=== PATIENT | female | born 1945 | race Caucasian/White ===

== ENCOUNTER → 2023-07-20 09:52 | Outpatient (REF) | payer MEDICARE, OTHER, SELFPAY | LOC: HWRAD 09:52 | PROVIDERS: ATTENDING PHYSICIAN Specialist | DX: R91.8 Other nonspecific abnormal finding of lung field (principal) | CPT/HCPCS: 71250 ==

== ENCOUNTER 2023-12-15 10:41 | Emergency (ER) | payer MEDICARE, OTHER, SELFPAY ==
[2023-12-15 11:07] VITALS: BP 201/93
[2023-12-15 11:23] VITALS: BP 192/95
[2023-12-15 11:48] VITALS: BMI 28.8
--- NOTE | 2023-12-15 11:55 | ED.GENMED ---
History of Present Illness
General
Chief Complaint: Visual Problem
Source: patient
Exam Limitations: none
Time Seen by Provider: 12/15/23 11:46
History of Present Illness
History of Present Illness:
See MDM
Past History
Past History
ED Past Medical History: Arrthythmia (a fib), HTN and Other (Colitis, diverticulitis)
ED Past Surgical History: Gynecological, Orthopedic (donna L femur), Urological and Other (Meningioma removal)
Social History
Tobacco: Non-smoker
Alcohol: None
Drug: None
Personal:
Living: with family
Phy Exam
Physical Exam
Physical Exam:
See MDM
Course
Orders/Labs/Results
Orders:
Orders
12/15/23 11:53
Electrocardiogram (*1) Urgent
Reason for Study: TIA/Stroke
CT Head W/o Iv Contrast Urgent
Comment:
Reason For Exam: double vision, JOVEL
EKG- Treatment ONCE
12/15/23 12:05
Complete Blood Count/With Diff Urgent
Comprehensive Metabolic Panel Urgent
PTT Urgent
Prothrombin Time Urgent
Troponin I Urgent
12/15/23 12:53
NEUROLOGY CONSULT Urgent
Consulting Provider: Ambrosio Murry
Was physician already notified: Yes
12/15/23 12:58
Labetalol HCl [Trandate] 10 mg IV NOW STA
12/15/23 14:02
Acetaminophen [Tylenol] 1,000 mg PO NOW STA
Abnormal Lab Results
12/15/23
12:05
WBC 4.5 L 10^3/uL
(4.8-10.8)
Immature Gran % 0.7 H %
(0-0.5)
PT 15.8 H Sec
(11.4-14.6)
Chloride 109 H mmol/L
(98-107)
BUN 18 H mg/dl
(7-17)
Glucose 106 H mg/dl
(70-99)
Calcium 10.4 H mg/dl
(8.4-10.2)
12/15/23 12:05
12/15/23 12:05
Vital Signs
Initial and Last Documented VS:
Initial Vital Signs
Temp Pulse Resp BP Pulse Ox
99.1 F 75 16 201/93 98
12/15/23 11:07 12/15/23 11:07 12/15/23 11:07 12/15/23 11:07 12/15/23 11:07
Last Documented Vital Signs
Temp Pulse Resp BP Pulse Ox
99.1 F 79 16 195/96 98
12/15/23 11:07 12/15/23 13:07 12/15/23 11:07 12/15/23 13:07 12/15/23 11:07
MDM/Problems Addressed
Differential Diagnosis Includes:
HPI and MDM Narrative:
78-year-old female presenting with double vision and headache. Symptoms started yesterday. She attributed the symptoms to recent sinus infection but patient is worried because she is having trouble with her vision. She states driving was very
difficult. She states the double vision occurs mostly from 10 feet distance moving on. She states she can read close up without difficulty.
Patient found to have an elevated blood pressure but she states she did not take her medicine this morning and blames on whitecoat syndrome
Physical exam
General: Well appearing and non-toxic
HEENT: protecting airway. Pupils equal reactive. Very mild decrease and lateral movement with the left eye. Double vision is worse when she looks to the left but resolved when she looks to the right. No double vision with monocular sight
Neck: supple
CV: No evidence of cyanosis. Regular rate and rhythm
Resp: No accessory muscle use
Abd: Non-distended
Extremities: No deformities
Neuro: alert
Psych: Normal affect
Skin: Intact
Problems Addressed including Acute and Chronic Conditions affecting care:
1. Diplopia
Acuity: acute
Prognosis: stable
Details: Symptoms are worse when she looks to the left. Very mild decrease and lateral movement of the left eye. Will obtain CT
Updates
Neurology did evaluate patient. We discussed left 6th cranial nerve palsy, eyepatch, rest and follow-up
Differential Diagnosis (but not limited to): Multiple sclerosis, stroke
Testing considered: CT angiogram
Drug therapy (if applicable): OTC meds, please see d/c instruction regarding Rx drugs
Amount and/or Complexity of Data Reviewed
Clinical info obtained from: Patient
External data reviewed: N/A
Labs I independently reviewed (but not limited to): Mild leukopenia
Radiology: The CT scan was personally and independently reviewed. In addition, official CT report reviewed.
Pulse Ox: not hypoxic
EKG independently reviewed: N/A
[employer]: N/A
Critical Care: N/A
Risk of Complication:
Social Determinants of health: Good social support
Discussed with other providers: Neurology
Escalation of Care includes Admit/Obs: After being observed in the Emergency Department, pt stable for discharge.
Occasional wrong word or 'sound a like' substitutions may have occurred due to the inherent limitations of voice recognition software. Read the chart carefully and recognize, using context, where substitutions have occurred.
*Critical Care Note
Total Time (30-74mins, 75-104mins- exclusive of procedures): Not Applicable
ED Attending Note
-
Portions of this chart may have been created with voice recognition software.� Occasional wrong word or��sound alike� substitutions may have occurred due to the inherent limitations of voice recognition software.
Discharge Plan
Departure
Patient Disposition: Home (Routine Discharge)
Date of Disposition: 12/15/23
Time of Disposition: 14:34
Patient with high blood pressure during this ER visit?: Yes
Discharge Problem:
6th nerve palsy
Instructions: BLOOD PRESSURE
Prescriptions:
No Action
psyllium Packet
1 packet PO BID
polyethylene glycol 3350 [Miralax] 17 gram/dose Powder
17 g PO QPM
atenolol 50 mg Tablet
50 mg PO BID
omeprazole 20 mg Tablet,Delayed Release (Dr/Ec)
20 mg PO BID
losartan 50 mg Tablet
50 mg PO DAILY PRN (Reason: SBP > 150)
Xarelto 20 mg Tablet
20 mg PO QPM
acetaminophen 500 mg Tablet
500 mg PO Q6H PRN (Reason: pain)
cranberry 500 mg Capsule
500 mg PO DAILY
Referrals:
Mouna Edmondson MD [Family Provider] -
Activity Restrictions/Additional Instructions:
Please return for any worsening symptoms.
You may return at any time if you have further concerns.
Please follow up with your doctor at the first available appointment, preferably this week.
Thank you for choosing [facility].
Interventions
Interventions:
*Risk Screen - Suicide Last Done: 12/15/23 11:49
*General Assessment Last Done: 12/15/23 11:49
*Neglect/Abuse Screening Last Done: 12/15/23 11:49
*ED COVID-19 Vaccine History Last Done: 12/15/23 11:49
ED- Neurological Assessment Last Done: 12/15/23 11:49
ED-EENT Assessment Last Done: 12/15/23 11:49
Discharge Date and Time
Print Language: GUAMANIAN
[2023-12-15 12:19] LABS: % Eosinophils 1.8 % (0-6); % Immature Granulocytes 0.7 % (0-0.5); % Lymphocytes 30.4 % (20.5-51.1); % Monocytes 9.3 % (1.7-9.3); % Neutrophils 57.8 % (42.2-75.2); Absolute Eosinophils 0.1 10^3/uL (0-0.7); Absolute Lymphocytes 1.4 10^3/uL (1.2-3.4); Absolute Monocytes 0.4 10^3/uL (0.1-0.6); Absolute Neutrophils 2.6 10^3/uL (1.4-6.5); Hematocrit 41.2 % (37.0-47.0); Hemoglobin 14.7 g/dL (12.0-16.0); Mean Corp Hgb Conc. 35.7 g/dL (33.0-37.0); Mean Corpuscular Hgb 29.9 pg (27.0-31.0); Mean Corpuscular Volume 83.7 fL (81.0-99.0); Nucleated Red Blood Cells % 0 %; Platelet Count 167 10^3/uL (130-400); Red Blood Cell Count 4.92 10^6/uL (4.20-5.40); Red Cell Dist. Width 12.7 % (11.5-14.5); White Blood Cell Count 4.5 10^3/uL (4.8-10.8)
[2023-12-15 12:30] LABS: ALT (SGPT) 31 U/L (0-35); AST (SGOT) 25 U/L (14-36); Albumin 4.6 g/dl (3.5-5.0); Alkaline Phosphatase 78 U/L (38-126); Blood Urea Nitrogen 18 mg/dl (7-17); Calcium 10.4 mg/dl (8.4-10.2); Carbon Dioxide 25 mmol/L (22-30); Chloride 109 mmol/L (98-107); Estimated Creatinine Clearance 72 ml/min; Glucose 106 mg/dl (70-99); Potassium 4.4 mmol/L (3.5-5.1); Sodium 141 mmol/L (135-145); Total Bilirubin 0.4 mg/dl (0.2-1.3); Total Protein 7.1 g/dl (6.3-8.2); eGFR > 60.00
[2023-12-15 12:41] LABS: Troponin I < 0.012 ng/ml
[2023-12-15 12:56] VITALS: BP 191/105
[2023-12-15 13:00] VITALS: BP 195/96
[2023-12-15] MEDS: TRANDATE 10 MG IV (13:07)
[2023-12-15 13:18] LABS: INR 1.28; PT 15.8 Sec (11.4-14.6)
[2023-12-15 13:19] LABS: APTT 33.9 Sec (23.4-35.0)
[2023-12-15 14:00] VITALS: BP 169/82
[2023-12-15] MEDS: TYLENOL 1000 MG PO (14:17)
--- NOTE | 2023-12-17 18:14 | CON.NEURO4 ---
Consultation - Neurology 4
-
CONSULTING PHYSICIAN: Ambrosio Murry MD (Neurology)
REFERRING PHYSICIAN: ER
DICTATED BY: Ambrosio Murry
DATE/TIME OF REQUEST: 12/15/2023
DATE/TIME OF CONSULTATION: 12/15/2023 1400
Reason for Consultation: Double Vision
History of Present Illness:
This is a 78 year old right handed female who has presented to the hospital with double vision. She gives a h/o HTN, atrial fibrillation, frontal meningioma(L), Patient's symptoms began yesterday, when she was driving and persisted. She has Double
vision while looking to the left, (objects appear side by side). Looking to the right and straight ahead her vision she only one object. No blurring or loss of color.
She denies falls or head injuries. No headaches, dizziness. No speech impediment or dysphagia. No focal weakness or numbness of the face or extremities. No LOC. No hearing loss or tinnitus.
Past Medical History: Meningioma, HTN, Atrial fibrillation
Surgical History: Left frontal meningioma, Left femur repair
Family History: [place]
Social History: Lives at home. Does not smoke or use alcohol
Allergies: Sulfa, Cardizem, Prednisone
Home Medications: Xarelto 20, Atenolol 50, Losartan 50
Review of Symptoms:
Patient denies any fever, headache, chest pain, shortness of breath, GI or symptoms.
�Per the HPI.�All systems are reviewed negative except above.
�-
Vital Signs: Addendum
Physical Exam:
The patient is afebrile, heart sounds S1 and S2 are irregular), and chest is clear to auscultation bilaterally.
Neurologic Examination:
The patient is awake, alert and oriented x 3. She is able to follow commands and answer questions appropriately. There is no aphasia or dysarthria. On cranial nerve assessment, pupils are 3 mm bilateral, round and reactive to light and
accommodation. Visual eid are full. Extraocular movements are impaired(LEFT Eye).
Pat unable to ABDuct left eye, Right eye movement intact
Facial sensations are intact and bilaterally symmetrical, there is no facial asymmetry. Hearing is intact bilaterally to normal conversation volume. Tongue palate and uvula are midline. Sternocleidomastoid strengths are full bilaterally. Motor
strengths are 5/5 bilateral upper and lower extremities on medical research [place] scale. There is no drift or involuntary movement noted. Deep tendon reflexes are 2+ bilateral upper and lower extremities and Babinski is absent bilaterally.
Sensations of pain, touch, temperature and vibration are intact and bilaterally symmetrical. There was no extinction noted on double simultaneous stimulation. Coordination is intact by finger to nose bilaterally.
Lab Results: Addendum
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
There are no findings to suggest recent intracranial infarction, intracranial hemorrhage, extra-axial fluid collection, mass effect or midline shift. The ventricles, cisterns and sulci are slightly prominent commensurate with age. The brainstem and
posterior fossa structures demonstrate no significant focal abnormality.
Impression:
Mrs. OLGA MAHAN is a 78 year old F who has presented to the hospital with chief complaint of double vision. She has a sixth cranial nerve palsy(LEFT)
Recommendations:
1. Eye patch
2. Ophthalmology eval. OP
3. Continue current medications
Discussed patient care with: ER and patient. Pat has been reassured symptoms should resolve in 4-6 weeks
Vital Signs and Labs
-
Vital Signs and Labs:
Vital Signs
Temp Pulse Resp BP Pulse Ox
37.3 C 76 22 169/82 98
12/15/23 11:07 12/15/23 14:15 12/15/23 14:15 12/15/23 14:00 12/15/23 11:07
Lab Results
12/15/23 12:05
12/15/23 12:05
PT 15.8 Sec (11.4-14.6) H 12/15/23 12:05
INR 1.28 12/15/23 12:05
APTT 33.9 Sec (23.4-35.0) 12/15/23 12:05
Sodium 141 mmol/L (135-145) 12/15/23 12:05
Potassium 4.4 mmol/L (3.5-5.1) 12/15/23 12:05
BUN 18 mg/dl (7-17) H 12/15/23 12:05
Glucose 106 mg/dl (70-99) H 12/15/23 12:05
Calcium 10.4 mg/dl (8.4-10.2) H 12/15/23 12:05
== END 2023-12-15 14:55 | disposition home or self-care (01) ==
LOC: EMR 10:41
PROVIDERS: CONSULT PHYSICIAN Psychiatry & Neurology Neurology; EMERGENCY PHYSICIAN Student in an Organized Health Care Education/Training Program; FAMILY PHYSICIAN Student in an Organized Health Care Education/Training Program
DX: H49.22 Sixth [abducent] nerve palsy, left eye (principal); I10 Essential (primary) hypertension
CPT/HCPCS: 99285; 96374; 70450; 80053; 84484; 85025; 85610; 85730; 93005

== ENCOUNTER 2024-07-23 06:28 | Day surgery (SDC) | payer MEDICARE, OTHER, SELFPAY | END 2024-07-23 09:45 | disposition home or self-care (01) | LOC: GI 06:28 | PROVIDERS: ATTENDING PHYSICIAN Internal Medicine Gastroenterology | DX: R19.4 Change in bowel habit (principal); K64.8 Other hemorrhoids; K57.30 Diverticulosis of large intestine without perforation or abscess without bleeding | CPT/HCPCS: 45380; 88305 ==

== ENCOUNTER → 2025-04-02 13:40 | Outpatient (REF) | payer MEDICARE, OTHER, SELFPAY | LOC: HWRCS 13:40 | PROVIDERS: ATTENDING PHYSICIAN Internal Medicine Cardiovascular Disease; FAMILY PHYSICIAN Family Medicine | DX: R01.1 Cardiac murmur, unspecified (principal) | CPT/HCPCS: 93306 ==